=== PATIENT | female | born 1945 | race Caucasian/White ===

== ENCOUNTER → 2021-06-12 02:25 | Outpatient (CLI) | payer MEDICARE, OTHER, SELFPAY ==
[2021-06-13 15:56] LABS: SARS-CoV-2 RNA PCR Positive
== END ==
PROVIDERS: PCP Physician Assistant; Visit Provider Physician Assistant
DX: U07.1 COVID-19 (principal)
CPT/HCPCS: C9803; U0003; U0005

== ENCOUNTER 2022-06-08 16:45 | Outpatient (CLI) | payer MEDICARE, OTHER, SELFPAY ==
--- NOTE | ~2022-06-08 | MR_ITS ---
EXAMINATION: MR lumbar spine wo con DATE: 06/08/2022 17:39 INDICATION: Back pain. TECHNIQUE: Magnetic resonance imaging (MRI) of the lumbar spine was performed without intravenous con trast. Sequences included sagittal T2-weighted FSE, sagittal T2-weighted FS FSE, sagittal T1-weighted FSE, and axial T2-weighted FSE. COMPARISON: Lumbar spine MRI 05/08/2015, CT abdomen and pelvis 07/24/2017 FINDINGS: There is 26 degrees levoscoliosis of thoracolumbar spine. There is 3 mm retrolisthesis of L 5 on S1. Vertebral body heights are normal. There is severely decreased disc height at L1-L2, moderat kendra decreased disc height at L2-L3, mildly decreased disc height at L3-L4 and L4-L5, and severely dec reased disc height at L5-S1 with endplate remodeling. The distal spinal cord signal intensity is norm al. The conus medullaris is at L1. 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 There is moderate right hydro nephrosis and hydroureter. Left kidney is absent. The following disc levels are specifically discusse d: L1-L2: The disc is bulging with superimposed right central and subarticular zone extrusion. There is mild bilateral facet joint osteoarthritis. There is mild bilateral neural foraminal stenosis. There i s mild central canal stenosis. L2-L3: The disc is bulging with superimposed central extrusion. There is mild bilateral facet joint o steoarthritis. There is moderate right and mild left neural foraminal stenosis. There is mild central canal stenosis. L3-L4: The disc is bulging with superimposed right foraminal extrusion. There is mild right and moder ate left facet joint osteoarthritis. There is moderate right and mild left neural foraminal stenosis. There is mild central canal stenosis. L4-L5: The disc is bulging with superimposed left foraminal extrusion. There is severe bilateral face t joint osteoarthritis. There is mild right and moderate left neural foraminal stenosis. There is mil d central canal stenosis. L5-S1: The disc is bulging. There is moderate right and severe left facet joint osteoarthritis. There is moderate bilateral neural foraminal stenosis. There is mild central canal stenosis. IMPRESSION: 1. Severe lumbar spondylosis, worsened from 05/08/2015. 2. Thoracolumbar levoscoliosis. 3. Moderate right hydronephrosis and hydroureter, new from 07/24/2017. Consider CT abdomen and pelvis without and with contrast (CT urogram). Reviewed, dictated and finalized at location A. H RUNNER
== END 2022-06-08 16:46 | disposition home or self-care (01) ==
LOC: ANHIMG 16:49
PROVIDERS: PCP Physician Assistant; Visit Provider Physician Assistant
DX: M47.896 Other spondylosis, lumbar region (principal); N13.30 Unspecified hydronephrosis
CPT/HCPCS: 72148

== ENCOUNTER 2022-06-16 15:00 | Outpatient (CLI) | payer MEDICARE, OTHER, SELFPAY ==
--- NOTE | ~2022-06-16 | CT_ITS ---
EXAMINATION: CT abdomen pelvis wo/w con DATE: 06/16/2022 15:43 INDICATION: Right hydronephrosis reported on recent MRI examination TECHNIQUE: Computed tomography (CT) of the abdomen and pelvis was performed without and subsequently with 130 CC Omnipaque 350 intravenous contrast. Automated exposure control and iterative reconstructi on technique were employed. Exam dose: 903.57 mGy-cm total exam DLP. COMPARISON: 06/08/2022 MRI lumbar spine 07/24/2017 CT abdomen pelvis FINDINGS: Cardiomegaly. The lung bases are clear except for minimal atelectasis. No pericardial or pl eural effusion. Small sliding hiatal hernia. The liver, gallbladder, bile ducts, spleen, pancreas, pancreatic duct and adrenal glands are unremark able. The left kidney is absent. 6 mm right renal cyst. There is right moderately severe hydroureteronephrosis, secondary to pelvic floor relaxation with pro lapse of the urinary bladder, including the trigone and distal right ureter. There is a large ventral supraumbilical midline abdominal wall hernia containing a loop of nonobstruc ha transverse colon in addition to fat. Normal appendix. There are numerous diverticula of the left colon; no evidence of diverticulitis. No bowel obstructio n or free air. Small fat-containing umbilical hernia. Multi-level degenerative disc disease, severe at L1-2, L2-3 and L5-S1. Prominent degenerative change s of the apophyseal joints. IMPRESSION: Pelvic floor relaxation with prolapse of a portion of the urinary bladder including trig one and distal right ureter, causing distal right ureteral partial obstruction and moderately severe right hydroureteronephrosis Large ventral supraumbilical abdominal wall hernia containing a loop of transverse colon Small sliding hiatal hernia Diverticulosis of the colon Normal appendix Reviewed, dictated and finalized at Location A. Reviewed, dictated and finalized at location L. S DATA ANALYST IMPRESSION: Pelvic floor relaxation with prolapse of a portion of the urinary bladder including trigone and distal right ureter, causing distal right uretera l partial obstruction and moderately severe right hydroureteronephrosis Large ventral supraumbilical abdominal wall hernia containing a loop of transve rse colon Small sliding hiatal hernia Diverticulosis of the colon Normal appendix
[2022-06-16 15:20] LABS: Estimated Glomerular Filt Rate 48
== END 2022-06-16 15:01 | disposition home or self-care (01) ==
PROVIDERS: PCP Physician Assistant; Visit Provider Physician Assistant
DX: N13.30 Unspecified hydronephrosis (principal); N81.89 Other female genital prolapse; K43.9 Ventral hernia without obstruction or gangrene; K44.9 Diaphragmatic hernia without obstruction or gangrene; K57.30 Diverticulosis of large intestine without perforation or abscess without bleeding
CPT/HCPCS: 74178; Q9967

== ENCOUNTER → 2022-07-12 09:49 | Outpatient (CLI) | payer MEDICARE, OTHER, SELFPAY ==
--- NOTE | ~2022-07-12 | US_ITS ---
EXAMINATION: US pelvic complete DATE: 07/12/2022 10:39 INDICATION: Ureterovaginal prolapse. Measure endometrium. Comparison:No prior studies for comparison. TECHNIQUE: Multiple transabdominal sonographic images of the pelvis performed. FINDINGS: The uterus measures 6.7 x 2.1 x 4 cm. The endometrial complex measures 5 mm. The ovaries are not visualized. No adnexal masses or fluid collections. There is no free fluid in the pelvis. There are no abnormal masses seen on either side. IMPRESSION: 1. Thickened endomtrial complex. The differential diagnosis includes endometrial hyperplasia, polyp a nd carcinoma. Biopsy is recommended. Reviewed, dictated and finalized at location A. STAR IMPRESSION: 1. Thickened endomtrial complex. The differential diagnosis includes endometria l hyperplasia, polyp and carcinoma. Biopsy is recommended.
== END ==
PROVIDERS: PCP Physician Assistant; Visit Provider Urology
DX: N81.3 Complete uterovaginal prolapse (principal)
CPT/HCPCS: 76856

== ENCOUNTER 2022-09-08 13:55 | Outpatient (CLI) | payer MEDICARE, OTHER, SELFPAY ==
--- NOTE | 2022-09-08 14:57 | ECG_ITS ---
Measurements Intervals [place] Rate: 49 P: 29 ID: [id number] QRS: -9 QRSD: 105 T: 17 QT: 462 QTc: 420 Interpretive Statements SINUS BRADYCARDIA BASELINE ARTIFACT LOW-VOLTAGE QRS IN PRECORDIAL LEADS BORDERLINE ECG NO PREVIOUS ECG AVAILABLE FOR COMPARISON Electronically Signed On 09-09-2022 16:28:33 CDT by Orlando Burden M.D.
[2022-09-08 16:07] LABS: Basophils Absolute Auto 0.1 K/mm3 (0.0-0.1); Basophils Percent Auto 0.7 % (0.2-1.2); Eosinophils Absolute Auto 0.1 K/mm3 (0-0.3); Eosinophils Percent Auto 1.5 % (0-4.4); Hematocrit 37.5 % (37.0-47.0); Hemoglobin 11.8 g/dL (12.0-15.0); Immature Granulocyte Absolute 0.02 K/mm3 (0.00-0.031); Immature Granulocyte Percent A 0.3 % (0-0.5); Lymphocytes Absolute Auto 2.36 K/mm3 (0.9-3.2); Lymphocytes Percent Auto 32.2 % (18.3-44.2); Mean Corpuscular HGB Conc 31.5 g/dl (32-36); Mean Corpuscular Hemoglobin 32.7 pg (26-34); Mean Corpuscular Volume 103.9 fl (80-100); Mean Platelet Volume 10.5 fl (7.4-10.4); Monocytes Absolute Auto 0.7 K/mm3 (0.1-0.6); Monocytes Percent Auto 9.5 % (2.6-8.5); Neutrophils Absolute Auto 4.1 K/mm3 (1.3-6.7); Neutrophils Percent Auto 55.8 % (45.5-73.1); Platelet Count Result 198 k/mm3 (150-375); Red Blood Count 3.61 M/mm3 (4.2-5.4); Red Cell Distribution Width 13.2 % (11.5-14.5); White Blood Count 7.3 K/mm3 (4.5-10.0)
[2022-09-08 16:17] LABS: Prothrombin Time 12.3 Seconds (11.1-14.7)
[2022-09-08 16:18] LABS: Partial Thromboplastin Time 26.3 SECONDS (22.3-36.8)
[2022-09-08 17:08] LABS: Alanine Aminotransferase 18 U/L (6-35); Albumin Level 4.1 g/dL (3.5-5.1); Alkaline Phosphatase 73 U/L (38-126); Anion Gap 5 mmol/L (8-16); Aspartate Amino Transferase 24 U/L (14-36); Bilirubin,Total 1.5 mg/dL (0.2-1.3); Blood Urea Nitrogen 16 mg/dL (7-17); Calcium 8.6 mg/dL (8.4-10.2); Carbon Dioxide 29 mmol/L (22-30); Chloride 108 mmol/L (98-107); Estimated Glomerular Filt Rate 48; Glucose 85 mg/dL (65-110); Potassium 3.7 mmol/L (3.4-5.0); Sodium 142 mmol/L (137-145)
== END 2022-09-08 13:56 | disposition home or self-care (01) ==
LOC: ANHSURGERY 14:01
PROVIDERS: PCP Physician Assistant; Visit Provider Urology
DX: Z01.812 Encounter for preprocedural laboratory examination (principal); Z01.810 Encounter for preprocedural cardiovascular examination; N81.4 Uterovaginal prolapse, unspecified; I10 Essential (primary) hypertension; R00.1 Bradycardia, unspecified
CPT/HCPCS: 36415; 80053; 85025; 85610; 85730; 86850; 86900; 86901; 93005

== ENCOUNTER 2022-09-19 00:17 | Day surgery (SDC) | payer MEDICARE, OTHER, SELFPAY ==
[2022-09-08 14:08] VITALS: BMI 27.1
--- NOTE | 2022-09-08 14:30 | PC.NURSE ---
Report to the Outpatient Waiting Room, entrance under the green pavilion located off [facility], at time __1130 on date _09/19/22 . Planned Procedure Time: _1330 . Time changes happen often and if your time is changed the preop area will call you the afternoon before. - You and your visitor will be asked to self-screen and do not enter if you have any COVID symptoms. - A mask is optional within the hospital at this time. Patients may have clear liquids (water, carbonated beverages, clear teas, apple juice) until 3 hours prior to surgery with a maximum of 20 ounces. - No food from midnight until time of surgery - Infants may have breast milk until 4 hours before surgery, infant formula 6 hours prior to surgery. - Children will be allowed to drink immediately following surgery. If applicable, please bring a bottle or sippy cup to assist with drinking. Juice, water, soda, and popsicles are readily available. For infants on formula, please bring formula the day of surgery. Pacifiers are allowed. Take the following medications with a SIP of water the morning of surgery: ___CARVEDILOL DO NOT STOP ANY OF YOUR OTHER PRESCRIPTION MEDICATIONS PRIOR TO SURGERY ?EXCEPT THE FOLLOWING Medications to discontinue per physician NONE Date to take last dose Please no make-up, nail german, hairspray, perfume, deodorant, or body powder the day of surgery. No jewelry (including any body piercings) or valuables the day of surgery, leave them at home. Please take a shower or bath the night before, or the morning of, surgery with an antibacterial soap. Wear comfortable, loose fitting clothing. Children are encouraged to wear pajamas. - Jewelry must be removed prior to entering the operating room. Rings and piercings that are not removed may be cut off. - The hospital will not accept responsibility for valuables. - Please leave all valuables, including medications, at home the day of surgery. If you are going home after surgery, a licensed armored truck driver must drive you home. - NO public transportation without another adult if you receive anesthesia. - We recommend that an adult stay with you for 24 hours following discharge. - We also recommend that you do not drive, make important decision, drink alcoholic beverages, or take any drugs that were not prescribed by your health care provider for at least 24 hours after your discharge time. For Pediatric surgeries, we recommend two adults accompany the child home. Follow any additional instructions given to you from your surgeon. If you or anyone in your household have experienced Covid symptoms in the past week, please notify your surgeon or the nurse liaison at the phone number below for possible testing. VERBAL AND WRITTEN instructions given to PATIENT and asked if any additional questions and then verbalized understanding. Patient advised to call surgeon office or pre surgery nurse liaison [phone] if any additional questions.
[2022-09-08 14:57] VITALS: BP 127/58; PULSE 56; RESP 18; TEMP 36.7; O2SAT 99
--- NOTE | 2022-09-16 11:10 | PM.IMHP ---
H&P: HPI History of Present Illness Date/Time: 09/16/22 11:10 Chief Complaint: Prolapse and stress incontinence Narrative: this is a with pelvic organ prolapse as well as stress incontinence. She is not sexually active. She would like repair. She presents for colpopexy and stress incontinence procedure she has had a negative endometrial biopsy Review of Systems Review of Systems: All systems reviewed & are unremarkable except as noted in HPI and below PMFSH Family History Family History Mother Patient's mother is in good health Father Patient's father is Other Family history of cardiovascular disease Family history of malignant neoplasm of ovary Social History Social History Smoking packs per day: 0.25 Smoking cigarettes per day: 5.0 Years smoked: 3 Smoking pack-years: 0.75 Smoking status: Former smoker Tobacco type: cigarettes Second hand tobacco smoke exposure: No Smoking end date: 05/29/71 Alcohol intake: current Substance use: never Lack of Transportation: No Lack of Food: Never True Current Housing: I Have Housing Concerned About Future Housing: No Difficulty Paying Gas/Electric Bills: No Difficulty Paying for Meds: No Currently Unemployed: No Education: High School Diploma/GED Difficulty w/ Childcare or Family Care: No Living arrangements: with family Spiritual care concerns: No Meds Home Medications and Allergies Home Medications Medication Instructions Recorded Confirmed Type imatinib 400 mg tablet (Gleevec) 400 mg PO HS 07/29/19 09/08/22 History carvedilol 12.5 mg tablet 12.5 mg PO BID #180 tabs 08/18/20 09/08/22 Rx omeprazole 20 mg capsule,delayed 20 mg PO DAILY #90 caps 08/18/20 09/08/22 Rx release fluticasone propionate 50 See Rx Instructions .Route 06/09/21 09/08/22 Rx mcg/actuation nasal .COMPLEX #48 grams spray,suspension acetaminophen 650 mg 1,300 mg PO Q12H PRN Pain 09/08/22 09/08/22 History tablet,extended release (Tylenol Arthritis Pain) Allergies Allergy/AdvReac Type Severity Reaction Status Date / Time codeine Allergy Mild Nausea Verified 05/10/22 10:54 ibuprofen Allergy Mild reflux Verified 05/10/22 10:54 naproxen Allergy Mild reflux Verified 05/10/22 10:54 hydrocodone AdvReac Nausea Verified 09/08/22 14:11 Exam Narrative: no acute distress normal breathing alert orient x3 uterine prolapse a +8 urethral mobility Assessment and Plan Assessment and plan (1) Uterine prolapse: Code(s): N81.4 - Uterovaginal prolapse, unspecified Status: Acute (2) SCARLETT (stress urinary incontinence, female): Code(s): N39.3 - Stress incontinence (female) (male) Status: Acute Plan plan for colpocleisis. As well as urethral sling. we discussed colpopexy as well, but she has a very large complex ventral hernia. She is not sexually active. Will proceed with colpocleisis. Understands risks of bleeding, infection, damage surrounding organs, damage to the urinary tract, recurrence of prolapse, recurrent or persistent stress incontinence, mesh related complications, inability have been treatment course. She agrees to proceed
[2022-09-19] VITALS (16 sets, daily range): BP systolic 89–130; BP diastolic 60–96; PULSE 63–116; RESP 12–21; TEMP 36.3–36.5; O2SAT 97–100; BMI 25.7
--- NOTE | 2022-09-19 07:16 | WPDHPUPDATE1 ---
History and Physical Update Update Date/Time: 09/19/22 07:16 History and Physical has been reviewed, including an updated exam of the patient. There are NO changes in the patient's condition. Risks, benefits, and alternatives have been discussed and questions answered. Patient agrees to proceed with procedure.
--- NOTE | 2022-09-19 13:09 | WPDANESEPPF ---
Anes - Initial Pre Proc Eval Procedure: Operation Date: 09/19/22 13:30 Proposed Procedures p Colpocleisis, - Preston Smith MD s Urethral Sling - Preston Smith MD Date/Time: 09/19/22 13:09 Surgeon: Preston Smith MD Pre Op Diagnosis: complete utero vag prolapse, incont Patient Data Age: 77 Gender: F Height: 1.64 m Weight: 69.25 kg Last Vital Signs Temp 36.4 C L 09/19/22 11:45 Pulse 82 09/19/22 11:45 Resp 18 09/19/22 11:45 BP 124/66 09/19/22 11:45 Pulse Ox 100 09/19/22 11:45 O2 Del Method Room Air 09/19/22 11:45 Allergies Allergy/AdvReac Type Severity Reaction Status Date / Time codeine Allergy Mild Nausea Verified 09/19/22 11:53 ibuprofen Allergy Mild Other Verified 09/19/22 11:53 naproxen Allergy Mild Other Verified 09/19/22 11:53 hydrocodone AdvReac Nausea Verified 09/19/22 11:53 Home Medications Medication Instructions Recorded Confirmed Type imatinib 400 mg tablet (Gleevec) 400 mg PO HS 07/29/19 09/08/22 History carvedilol 12.5 mg tablet 12.5 mg PO BID #180 tabs 08/18/20 09/19/22 Rx omeprazole 20 mg capsule,delayed 20 mg PO DAILY #90 caps 08/18/20 09/08/22 Rx release fluticasone propionate 50 See Rx Instructions .Route 06/09/21 09/08/22 Rx mcg/actuation nasal .COMPLEX #48 grams spray,suspension acetaminophen 650 mg 1,300 mg PO Q12H PRN Pain 09/08/22 09/19/22 History tablet,extended release (Tylenol Arthritis Pain) Patient hx anesthesia problems: post op nausea/vomiting Family hx anesthesia problems: none Results Review: All pre-operative results and documents have been reviewed as part of the pre-operative evaluation. [facility] Family History Family History Mother Patient's mother is in good health Father Patient's father is Other Family history of cardiovascular disease Family history of malignant neoplasm of ovary Social History Social History Smoking packs per day: 0.25 Smoking cigarettes per day: 5.0 Years smoked: 3 Smoking pack-years: 0.75 Smoking status: Former smoker Tobacco type: cigarettes Second hand tobacco smoke exposure: No Smoking end date: 05/29/71 Alcohol intake: current Substance use: never Lack of Transportation: No Lack of Food: Never True Current Housing: I Have Housing Concerned About Future Housing: No Difficulty Paying Gas/Electric Bills: No Difficulty Paying for Meds: No Currently Unemployed: No Education: High School Diploma/GED Difficulty w/ Childcare or Family Care: No Living arrangements: with family Spiritual care concerns: No Anes - Eval Final PreProcedure Day of Procedure 09/19/22 13:09 Patient weight: normal Heart: tachycardia Lungs: clear to auscultation Airway: Mallampati scale class II Neurological: alert and oriented Last oral intake: >/= 8 hours ASA classification: III Emergent: no Anesthetic plan: proceed Anesthesia type and monitoring: general LMA and standard monitoring Results Review: All pre-operative results and documents have been reviewed as part of the pre-operative evaluation. Informed Consent: The patient's anesthetic plan and its attendant risks and benefits were discussed with the patient/family/POA. Questions were solicited and answers provided to the satisfaction of the patient/family/POA.
[2022-09-19] MEDS: LACTATED RINGERS 1,000 ML 30 ML IV CONT ×2 (13:19→16:59)
[2022-09-19] MEDS: ceFAZolin 2 GM/D5W 50 ML 2 GM/50 ML BAG IVPB (13:25)
[2022-09-19] MEDS: BUPIVACAINE/EPINEPHRINE 0.25% 10 ML VIAL 20 ML INFILTRATE (14:08)
--- NOTE | 2022-09-19 15:28 | P.OP_ITS ---
Procedure Note - Detailed Date of Procedure 09/19/22 Pre-op Diagnosis complete utero vag prolapse Stress incontinence Post-op Diagnosis Same Procedure Performed Cystocele repair this, rectocele repair, urethral sling, cystoscopy Surgeon Preston Smith MD Anesthesia General Indications This is a woman with significant uterine prolapse as well as cystocele and rectocele. She is not sexually active has no plans on being. She also has bothersome stress incontinence. She would like these issues remedied. She is here today for surgery. She understands risks of bleeding, infection, damage surrounding organs, damage to bowel urinary tract, damage to the ureters, recurrence of prolapse, vaginal mesh extrusion, urinary tract mesh erosion, obstructive voiding requiring secondary procedure, hip and leg pain, inability to have penetrative intercourse. She agrees Findings Significant uterine prolapse Urethral hypermobility Description of Procedure She has correctly identified. Informed consent obtained. She from the operating room. She was given general anesthesia. She was prepped and draped sterile fashion. Time-out performed. I placed [place] catheter. I placed a [place] retractor. Six significant uterine prolapse. I grasped the apex Allis clamps. I then angelique 2 rectangle shaped areas on the anterior and posterior vaginal wall. I left drainage tunnels on the side. I 1st infiltrated the posterior vaginal wall with lidocaine mixed with saline. I removed the mucosa off the posterior vaginal wall again leaving drainage tunnels. I then removed the mucosa off the anterior vaginal wall. I took great care not to violate underlying bladder rectum. I then performed a plication cystocele and rectocele repair and completed a Le[place] type colpocleisis. I plicated the tissues with interrupted 0 Vicryl sutures. I left drainage tunnels laterally. This completed the prolapse procedure. I then closed mucosa to mucosa with interrupted horizontal mattress of 0 Vicryl suture. Hemostasis was assured I then turned my attention urethral sling. I marked out the thigh incisions. I anesthetized the skin and made those incisions. I anesthetized the anterior vaginal wall over the mid urethra. I made a 1 cm incision. I dissected out laterally taking great care not injured urethra vaginal wall. I passed helical trocars 1st on the left the right from the thigh incision towards the vaginal incision. Sling was connected to trocars and brought out the thigh incision. Potentially appropriately. I cut new plastic sheaths. I then closed incision with 2-0 Vicryl. On cystoscopy she had moderate trabeculations. No bladder abnormalities no tumors. No surgical artifact in the bladder urethra. Right ureter was seen to excrete clear yellow urine. The left kidney is absent. I then turned my attention to the perineorrhaphy. I angelique out a brenda-shaped area of skin on the perineum. I anesthetized this area of skin. I removed this area of skin. I then performed a classic perineorrhaphy with interrupted 0 Vicryl suture. This narrow down the introitus. I then used a 2-0 Vicryl to close the mucosa completed the perineorrhaphy. I then cut the excess sling material. I closed the incisions with surgical glue. Rectal exam was normal. Of note she has new onset AFib. Will keep her in house overnight have Cardiology see her. I would ask the blood thinner not be started for at least 48 hours.
[2022-09-19] MEDS: ONDANSETRON INJ 4 MG/2 ML VIAL IV PUSH (15:51)
[2022-09-19] MEDS: diphenhydrAMINE HCl INJ 50 MG/ML VIAL 12.5 MG IV PUSH (16:00)
--- NOTE | 2022-09-19 16:48 | PM.CNCAR ---
Assessment and Plan Assessment and plan (1) Atrial fibrillation: Code(s): I48.91 - Unspecified atrial fibrillation Status: Acute Assessment and Plan: New onset atrial fibrillation recognized on telemetry during surgery this afternoon. She has never been diagnosed with atrial fibrillation but has a history of feeling palpitations for many years. according to nursing report, her heart rate increased to the 130s during surgery. She is currently rate controlled and asymptomatic. I discussed the concept of rate control versus rhythm control with her. Since by her history it sounds like she has been having intermittent atrial fibrillation and given that she is currently asymptomatic, will pursue rate control and anticoagulation strategy. She takes carvedilol at home for blood pressure. Will discontinue this and switch her to metoprolol as this should provide better rate control. Per Dr. Smith, no systemic anticoagulation for 48 hours. Planned to start Eliquis at discharge, 1st dose 27 a.m. check echo check TSH check BMP she is being admitted for observation. Will follow with her while she remains hospitalized. Outpatient follow-up in our office. History of Present Illness History of Present Illness Consult date/time: 09/19/22 16:48 Requesting physician: Preston Smith MD Consult reason: atrial fibrillation Reason For Visit: complete utero vag prolapse, incont Narrative: Ms. Cristina Is a 77-year-old female who underwent cystocele and rectocele repair and urethral sling surgery this afternoon. Perioperatively, she went into atrial fibrillation with rapid ventricular response. The patient denies having any prior cardiac history including any history of coronary artery disease, heart failure, or any arrhythmias. She does however state that for many years she feels a sensation of her heart racing which typically lasts for about a day and subsides on its own. Since she was not significantly bothered by this she never sought treatment or had any official diagnosis of any arrhythmia. She denies any chest pain, shortness of breath, orthopnea, swelling. Review of Systems Review of Systems: All systems reviewed & are unremarkable except as noted in HPI and below Genitourinary: Genitourinary: Reports urinary incontinence [facility] Family History Family History Mother Patient's mother is in good health Father Patient's father is Other Family history of cardiovascular disease Family history of malignant neoplasm of ovary Social History Social History Smoking packs per day: 0.25 Smoking cigarettes per day: 5.0 Years smoked: 3 Smoking pack-years: 0.75 Smoking status: Former smoker Tobacco type: cigarettes Second hand tobacco smoke exposure: No Smoking end date: 05/29/71 Alcohol intake: current Substance use: never Lack of Transportation: No Lack of Food: Never True Current Housing: I Have Housing Concerned About Future Housing: No Difficulty Paying Gas/Electric Bills: No Difficulty Paying for Meds: No Currently Unemployed: No Education: High School Diploma/GED Difficulty w/ Childcare or Family Care: No Living arrangements: with family Spiritual care concerns: No Meds Home Medications and Allergies Home Medications Medication Instructions Recorded Confirmed Type imatinib 400 mg tablet (Gleevec) 400 mg PO HS 07/29/19 09/08/22 History carvedilol 12.5 mg tablet 12.5 mg PO BID #180 tabs 08/18/20 09/19/22 Rx omeprazole 20 mg capsule,delayed 20 mg PO DAILY #90 caps 08/18/20 09/08/22 Rx release fluticasone propionate 50 See Rx Instructions .Route 06/09/21 09/08/22 Rx mcg/actuation nasal .COMPLEX #48 grams spray,suspension acetaminophen 650 mg 1,300 mg PO Q12H PRN Pain 09/08/22 09/19/22 History tablet,exte
[2022-09-19] MEDS: METOPROLOL TARTRATE 12.5 MG TABLET PO (16:50)
[2022-09-19] MEDS: KCL 20 MEQ/D5/0.45% SOD CHL 1,000 ML 100 ML IV CONT (18:47)
[2022-09-19 19:13] LABS: Anion Gap 4 mmol/L (8-16); Blood Urea Nitrogen 13 mg/dL (7-17); Calcium 8.1 mg/dL (8.4-10.2); Carbon Dioxide 25 mmol/L (22-30); Chloride 110 mmol/L (98-107); Estimated CRCL calculation 47 ml/min; Estimated Glomerular Filt Rate > 60; Glucose 104 mg/dL (65-110); Potassium 3.6 mmol/L (3.4-5.0); Sodium 139 mmol/L (137-145)
[2022-09-19 19:44] LABS: Thyroid Stimulating Hormone 0.283 uIU/mL (0.465-4.680)
[2022-09-19] MEDS: carvediloL 12.5 MG TABLET PO (20:39)
[2022-09-19] MEDS: ceFAZolin 1 GM/NS 50 ML 1 GM/50 ML BAG IVPB (21:55)
[2022-09-19] MEDS: ACETAMINOPHEN 325 MG TABLET 650 MG PO (21:59)
[2022-09-20] VITALS (7 sets, daily range): BP systolic 120–129; BP diastolic 47–54; PULSE 69–80; RESP 16–19; TEMP 36.6–36.9; O2SAT 97–98
--- NOTE | 2022-09-20 | ECHO_ITS ---
Patient Info Name: Jeanna Crisitna Age: 77 years : 1945 Gender: Female Ht: 65 in Wt: 152 lbs BSA: 1.79 m2 HR: 77 bpm BP: 120 / 49 mmHg Heart Rhythm: Sinus Rhythm Exam Date: 09/20/2022 8:59 AM Exam Location: [facility] Patient Status: Outpatient Admit Date: 09/19/2022 Staff Ordering Physician: Danna Lawrence [place] Captain: Rylan Vidal, [place], RT Attending Provider: Preston Smith MD Referring Physician: Melinda KOO; Exam Type: CA echo doppler color flow Study Info Indications I48.1 - Persistent atrial fibrillation Complete two-dimensional, color flow and Doppler transthoracic echocardiogram is performed. Strain analysis performed. Summary 1. Complete two-dimensional, color flow and Doppler transthoracic echocardiogram is performed. 2. Left ventricular chamber dimension is normal. 3. Left ventricular systolic function is normal, estimated at 65-70%. 4. There is mildly increased left ventricular wall thickness. 5. The left ventricular diastolic function is grade I diastolic dysfunction. 6. Right ventricular chamber dimension is mildly enlarged. 7. Right ventricular systolic function is normal. 8. Left atrial chamber dimension is mildly enlarged. 9. There is mild tricuspid valve regurgitation. Left Ventricle Left ventricular chamber dimension is normal. Left ventricular systolic function is normal, estimated at 65-70%. There is mildly increased left ventricular wall thickness. The left ventricular diastolic function is grade I diastolic dysfunction. Global longitudinal strain is normal at -21 %. Right Ventricle Right ventricular chamber dimension is mildly enlarged. Right ventricular systolic function is normal. Left Atria Left atrial chamber dimension is mildly enlarged. Right Atria Right atrial chamber dimension is normal. Atrial Septum Intact interatrial septum visualized by color flow imaging. Aortic Valve The aortic valve is trileaflet. There is mild aortic valve sclerosis. There is no aortic valve stenosis. There is no aortic valve regurgitation. Pulmonic Valve The pulmonic valve is not well visualized. Mitral Valve The mitral valve has normal leaflets. There is no mitral valve stenosis. There is trace mitral valve regurgitation. Tricuspid Valve There is no significant tricuspid valve stenosis. There is mild tricuspid valve regurgitation. Pericardium/Pleural There is small anterior pericardial effusion. Inferior Vena Cava Normal inferior vena cava with >50% collapse upon inspiration consistent with normal right atrial pressure, 3 mmHg. Aorta The aortic root size at the sinus of Valsalva is normal. Left Ventricular Outflow Tract Name Value Normal LVOT 2D LVOT Diameter 1.9 cm LVOT Doppler LVOT Peak Gradient 9 mmHg LVOT Mean Gradient 5 mmHg LVOT VTI 30 cm LVOT VTI/AV VTI Ratio 0.8 LVOT Stroke Volume 86 ml LVOT CO 7.0 l/min LVOT CI
[2022-09-20] MEDS: KCL 20 MEQ/D5/0.45% SOD CHL 1,000 ML 100 ML IV CONT (05:28)
[2022-09-20] MEDS: ceFAZolin 1 GM/NS 50 ML 1 GM/50 ML BAG IVPB ×2 (05:29→14:48)
--- NOTE | 2022-09-20 09:24 | PM.PNCARD ---
Progress Note: A&P Assessment and Plan (1) Atrial fibrillation: Code(s): I48.91 - Unspecified atrial fibrillation Status: Acute Assessment and Plan: New onset atrial fibrillation recognized on telemetry during surgery this afternoon. She has never been diagnosed with atrial fibrillation but has a history of feeling palpitations for many years. according to nursing report, her heart rate increased to the 130s during surgery. She is currently rate controlled and asymptomatic. I discussed the concept of rate control versus rhythm control with her. Since by her history it sounds like she has been having intermittent atrial fibrillation and given that she is currently asymptomatic, will pursue rate control and anticoagulation strategy. She takes carvedilol at home for blood pressure. She has been shifted to metoprolol as this should provide better rate control. She has a [id number] score of 3 (female gender, age, HTN). Anticoagulation is indicated. Per Dr. Smith, no systemic anticoagulation for 48 hours. Plan to start Eliquis at discharge, 1st dose 4/27 a.m. Echo showed normal LVSF, no valve pathology TSH 0.283. Follow up with PCP Outpatient follow-up in our office. Subjective Date/time seen: 09/20/22 09:24 Cardiology follow up for atrial fibrillation She's feeling well this morning. Back in sinus rhythm at this point. Review of Systems Review of Systems: All systems reviewed & are unremarkable except as noted in HPI and below Genitourinary: Genitourinary: Reports urinary incontinence Exam Const: General: comfortable, no acute distress, alert and awake Orientation/consciousness: patient oriented x3 HENMT: Head: normal to inspection Eyes: General: appearance normal, both eyes and all related structures Pupils: Equal, round and reactive pupils present Neck: Neck: normal visual inspection, supple and no JVD Carotids: normal carotid upstroke Resp: Effort & Inspection: normal respiratory effort Auscultation: clear to auscultation bilaterally Cardio: Rate: regular rate Rhythm: regular rhythm Heart sounds: S1 normal heart sound present, S2 normal heart sound present and no murmurs GI: Auscultation: normal bowel sounds Skin: General skin exam: normal color Neuro: General: patient oriented x3 Cranial nerves: Yes Equal, round and reactive pupils present Extrem: General: normal to inspection Psych: Appearance: grossly normal Mental Status: mental status grossly normal Objective Data Vital Signs Vital Signs: Vital Signs - 24 hr 09/19/22 11:45 09/19/22 15:28 09/19/22 15:30 Temperature 36.4 C L 36.5 C Pulse Rate 82 116 H 103 H Respiratory Rate 18 12 20 Blood Pressure 124/66 105/76 112/75 Pulse Oximetry 100 100 100 Oxygen Delivery Room Air Simple Face Mask Nasal Cannula Oxygen Flow Rate 10 2 09/19/22 15:45 09/19/22 16:00 09/19/22 16:15 Temperature Pulse Rate 105 H 103 H 92 Respiratory Rate 21 H 21 H 15 Blood Pressure 98/62 L 110/60 107/64 Pulse Oximetry 97 100 100 Oxygen Delivery Nasal Cannula Room Air Room Air Oxygen Flow Rate 2 09/19/22 16:30 09/19/22 16:45 09/19/22 16:50 Temperature Pulse Rate 105 H 103 H 105 H Respiratory Rate 18 20 Blood Pressure 102/63 125/96 H Pulse Oximetry 100 100 Oxygen Delivery Room Air Room Air Oxygen Flow Rate 09/19/22 17:00 09/19/22 17:15 09/19/22 17:30 Temperature Pulse Rate 87 104 H 99 Respiratory Rate 14 20 19 Blood Pressure 112/65 103/66 101/63 Pulse Oximetry 99 99 97 Oxygen Delivery Room Air Room Air Room Air Oxygen Flow Rate 09/19/22 17:45 09/19/22 17:58 09/19/22 20:39 Temperature Pulse Rate 98 97 71 Respiratory Rate 18 17 Blood Pressure 89/64 L 101/65 Pulse Oximetry 98 99 Oxygen Delivery Room Air Room Air Oxygen Flow Rate 09/19/22 20:07 09/20/22 00:07 09/20/22 00:00 Temperature 36.3 C L 36.7 C Pulse Rate 63 80 70 Respiratory Rate 18 16 Blood Pressure 130/62 126/50
[2022-09-20] MEDS: ENOXAPARIN 30 MG/0.3 ML SYRINGE SUB-Q (10:04)
[2022-09-20] MEDS: PANTOPRAZOLE 40 MG TABLET PO (10:05)
[2022-09-20] MEDS: carvediloL 12.5 MG TABLET PO (10:05)
[2022-09-20] MEDS: DOCUSATE SODIUM 100 MG CAPSULE PO (10:05)
[2022-09-20] MEDS: METOPROLOL SUCCINATE EXT REL 12.5 MG TABCR PO (10:08)
--- NOTE | 2022-09-20 10:17 | WPDANESPN ---
Anes - Prog Note Post-Op Date/Time: 09/20/22 10:17 Cardiovascular status: normal Respiratory status: normal Airway patency: baseline Mental status: baseline Post-Op hydration status: normal Vital Signs: Last Vital Signs Temp 36.6 C 09/20/22 04:07 Pulse 79 09/20/22 04:07 Resp 16 09/20/22 04:07 BP 120/49 L 09/20/22 04:07 Pulse Ox 97 09/20/22 04:07 O2 Del Method Room Air 09/20/22 04:58 O2 Flow Rate 2 09/19/22 15:45 Pain Score (VAS): 08/05 I/O: Intake & Output 09/19/22 09/20/22 09/20/22 23:59 07:59 15:59 Intake Total 1250 1200 Output Total 100 500 Balance 1150 700 Laboratory Tests 09/19/22 18:48 09/19/22 09/19/22 18:48 18:48 Sodium 139 Potassium 3.6 Chloride 110 H Carbon Dioxide 25 Anion Gap 4 L BUN 13 Creatinine 0.80 Estim Creat Clear Calc 47 Estimated GFR > 60 Glucose 104 Calcium 8.1 L TSH 0.283 L Blood Type O Negative Antibody Screen Negative Post-procedural complaints: none Patient Feedback: Patient satisfied with anesthetic care.
--- NOTE | 2022-09-20 12:14 | WPDUROPN2 ---
Progress Note: A&P Assessment and Plan (1) Atrial fibrillation: Code(s): I48.91 - Unspecified atrial fibrillation Status: Acute Assessment and Plan: Cardiology recommended starting Eliquis, however per Dr. Smith we will not start this for 48 hours. (2) SCARLETT (stress urinary incontinence, female): Code(s): N39.3 - Stress incontinence (female) (male) Status: Acute Assessment and Plan: Ok to discharge per urology when cardiology clears patient for discharge home. She can increase diet to regular, urinating without difficulty after catheter removal. (3) Uterine prolapse: Code(s): N81.4 - Uterovaginal prolapse, unspecified Status: Acute Subjective Subjective Date/Time Seen: 09/20/22 12:14 POD #1 Cystocele repair this, rectocele repair, urethral sling, cystoscopy The patient is doing relatively well post operatively. She has been tolerating diet and activity well. She did encounter A-Fib yesterday and was kept overnight for further evaluation by cardiology. Post Op day: 1 Review of Systems Cardiovascular: Cardiovascular: Denies chest pain Respiratory: Respiratory: Reports no additional respiratory complaints Gastrointestinal: Gastrointestinal: Denies abdominal pain, Denies nausea and Denies vomiting Genitourinary: Genitourinary: Denies dysuria, Denies pelvic pain, Denies urinary incontinence, Denies urinary hesitancy and Denies urinary urgency Exam Const: General: cooperative Resp: Effort & Inspection: normal respiratory effort Cardio: Rate: regular rate GI: GI Palp: Yes Soft to palpation and No Tenderness to palpation present (GI) : General: Yes no CVA tenderness Extrem: Right lower extremity: no edema Left lower extremity: no edema Objective Data Vital Signs Vital Signs: Vital Signs - 24 hr 09/19/22 15:28 09/19/22 15:30 09/19/22 15:45 Temperature 97.7 F Pulse Rate 116 H 103 H 105 H Respiratory Rate 12 20 21 H Blood Pressure 105/76 112/75 98/62 L Pulse Oximetry 100 100 97 Oxygen Delivery Simple Face Mask Nasal Cannula Nasal Cannula Oxygen Flow Rate 10 2 2 09/19/22 16:00 09/19/22 16:15 09/19/22 16:30 Temperature Pulse Rate 103 H 92 105 H Respiratory Rate 21 H 15 18 Blood Pressure 110/60 107/64 102/63 Pulse Oximetry 100 100 100 Oxygen Delivery Room Air Room Air Room Air Oxygen Flow Rate 09/19/22 16:45 09/19/22 16:50 09/19/22 17:00 Temperature Pulse Rate 103 H 105 H 87 Respiratory Rate 20 14 Blood Pressure 125/96 H 112/65 Pulse Oximetry 100 99 Oxygen Delivery Room Air Room Air Oxygen Flow Rate 09/19/22 17:15 09/19/22 17:30 09/19/22 17:45 Temperature Pulse Rate 104 H 99 98 Respiratory Rate 20 19 18 Blood Pressure 103/66 101/63 89/64 L Pulse Oximetry 99 97 98 Oxygen Delivery Room Air Room Air Room Air Oxygen Flow Rate 09/19/22 17:58 09/19/22 20:39 09/19/22 20:07 Temperature 97.4 F L Pulse Rate 97 71 63 Respiratory Rate 17 18 Blood Pressure 101/65 130/62 Pulse Oximetry 99 98 Oxygen Delivery Room Air Oxygen Flow Rate 09/20/22 00:07 09/20/22 00:00 09/20/22 04:00 Temperature 98.1 F Pulse Rate 80 70 69 Respiratory Rate 16 Blood Pressure 126/50 L Pulse Oximetry 98 Oxygen Delivery Oxygen Flow Rate 09/20/22 04:07 09/20/22 04:58 09/20/22 04:00 Temperature 97.8 F Pulse Rate 79 73 Respiratory Rate 16 Blood Pressure 120/49 L Pulse Oximetry 97 Oxygen Delivery Room Air Oxygen Flow Rate 09/20/22 08:00 Temperature Pulse Rate 79 Respiratory Rate Blood Pressure Pulse Oximetry Oxygen Delivery Oxygen Flow Rate Intake/Output Intake/Output: Intake & Output 09/17/22 09/18/22 09/19/22 09/20/22 23:59 23:59 23:59 23:59 Intake Total 1300 1560 Output Total 100 500 Balance 1200 1060 Meds/Results Medications: Active Medications Generic Name Dose Route Start Last Admin Trade Name Freq PRN Reason Stop Dose Admin Acetaminop
== END 2022-09-20 16:28 | disposition home or self-care (01) ==
LOC: ANHSURGERY 15:42 → ANH3MEDSUR 18:23
PROVIDERS: Nurse Practitioner; PCP Physician Assistant; Visit Provider Urology
PROC: (CPT 57120; principal; 2022-09-19 13:30)
PROC: (CPT 57260; 2022-09-19 13:30)
DX: N81.3 Complete uterovaginal prolapse (principal); N39.3 Stress incontinence (female) (male); I48.91 Unspecified atrial fibrillation; Z87.891 Personal history of nicotine dependence
CPT/HCPCS: 57260; 57288; 36415; 80048; 84443; 86850; 86900; 86901; 93306; A9270; C1758; C1769; C1771; J0690; J1200; J1650; J2250; J2370; J2405; J2704; J2765; J3010; J3480; J7030; J7120